=== PATIENT | female | born 1970 | race African-American/Black ===

== ENCOUNTER 2019-02-18 07:05 | Day surgery (SDC) | payer MEDICARE ==
[~2019-02-18] VITALS: Ht 160 cm; Wt 77.1 kg
[~2019-02-18 07:05] MED LIST: AMBIEN10 MG PO; ATENOLOL50 MG PO; BLEPH-1010 % OD; BUPROPION150 M4 PO; CETIRIZINE10 MG PO; CO Q-10 PO; DIOVAN160 MG OR; EFFEXOR25 MG OR; FLUOXETINE20 MG OR; HYZAAR1 TAB PO; KLONOPIN1 MG PO; LORTAB 5 OR; METOPROL TAR25 MG PO; NAPROSYN500 MG PO; NASACORT A55 MCG/ACT NAB; NORVASC5 M1 PO; OMEPRAZOLE DR40 MG PO; PRAVASTATIN SOD20 MG PO; PROZAC10 MG PO; PROZAC20 M1 PO; PROZAC40 MG PO; TRAZODONE100 MG OR; [UNRECOGNIZED DRUG - REMARK] OU
[2019-02-18 09:33] VITALS: BP 94/60
[2019-02-18] MEDS ORDERED: ONDANSETRON4 MG PO (10:14)
== END 2019-02-18 10:15 | disposition home or self-care (01) ==
LOC: ENDO 07:05 → ORM 08:45 → ENDO 10:15
PROVIDERS: ATTEND Surgery
PROC: 0DB98ZX Excision of Duodenum, Via Natural or Artificial Opening Endoscopic, Diagnostic (ICD-10-PCS; principal; 2019-02-18)
PROC: 0DB48ZX Excision of Esophagogastric Junction, Via Natural or Artificial Opening Endoscopic, Diagnostic (ICD-10-PCS; 2019-02-18)
DX: K21.9 Gastro-esophageal reflux disease without esophagitis (principal); K44.9 Diaphragmatic hernia without obstruction or gangrene; K29.80 Duodenitis without bleeding; I10 Essential (primary) hypertension

== ENCOUNTER 2020-04-18 08:09 | Day surgery (SDC) | payer MEDICARE ==
[~2020-04-18 08:09] MED LIST changes: +ONDANSETRON4 MG PO
[2020-04-18 14:09] VITALS: BP 109/78
== END 2020-04-18 13:30 | disposition home or self-care (01) ==
LOC: ORM 08:09
PROVIDERS: ATTEND Surgery
PROC: 06BY3ZC Excision of Hemorrhoidal Plexus, Percutaneous Approach (ICD-10-PCS; principal; 2020-04-18)
DX: K64.8 Other hemorrhoids (principal); I10 Essential (primary) hypertension; Z20.828 Contact with and (suspected) exposure to other viral communicable diseases
CPT/HCPCS: C9290; J1100

== ENCOUNTER 2022-04-27 09:32 | Emergency (ER) | payer MEDICARE ==
[~2022-04-27] VITALS: Ht 165.1 cm; Wt 63.0 kg
[~2022-04-27 09:32] MED LIST changes: +BUPROPN HCL300 MG PO
[2022-04-27] MEDS ORDERED: BENZONATATE200 MG PO (10:47)
[2022-04-27] MEDS ORDERED: ZPAK PO (10:47)
[2022-04-27 10:50] VITALS: BP 134/77
== END 2022-04-27 10:56 | disposition home or self-care (01) ==
LOC: ED 09:32
DX: J20.9 Acute bronchitis, unspecified (principal); I10 Essential (primary) hypertension; Z20.822 Contact with and (suspected) exposure to COVID-19

== ENCOUNTER 2023-11-15 17:23 | Emergency (ER) | payer MEDICARE ==
[~2023-11-15] VITALS: Ht 160 cm; Wt 74.8 kg
[~2023-11-15 17:23] MED LIST changes: +BENZONATATE200 MG PO; +COLACE100 MG PO; +CRESTOR10 MG PO; +PERCOCET 5/325M1 TAB PO; +PROVENTIL0.083 % IN; +TIZANIDINE2 MG PO; +TRAMADOL HCL50 MG PO; +VENTOLIN HFA108 MCG IN; +ZPAK PO
[2023-11-15 17:32] VITALS: BP 132/81
[2023-11-15 17:45] VITALS: BP 119/86
[2023-11-15 18:00] VITALS: BP 123/84
[2023-11-15] MEDS ORDERED: Diph, Acellular Pertussis, Tet 0.5 ML/VIAL (Tdap) SDV IM ONE (18:00)
[2023-11-15 18:15] VITALS: BP 123/84
== END 2023-11-15 18:18 | disposition home or self-care (01) ==
LOC: ED 17:23
PROC: 0HQFXZZ Repair Right Hand Skin, External Approach (ICD-10-PCS; principal; 2023-11-15)
DX: S61.411A Laceration without foreign body of right hand, initial encounter (principal); W26.8XXA Contact with other sharp object(s), not elsewhere classified, initial encounter; I10 Essential (primary) hypertension; F41.9 Anxiety disorder, unspecified; F32.A Depression, unspecified

== ENCOUNTER 2023-11-29 08:13 | Emergency (ER) | payer MEDICARE ==
[~2023-11-29] VITALS: Ht 160 cm; Wt 75.2 kg
[2023-11-29 08:30] VITALS: BP 132/91
== END 2023-11-29 08:55 | disposition home or self-care (01) ==
LOC: ED 08:13
DX: S61.411D Laceration without foreign body of right hand, subsequent encounter (principal); X58.XXXD Exposure to other specified factors, subsequent encounter; I10 Essential (primary) hypertension; F41.9 Anxiety disorder, unspecified; F32.A Depression, unspecified